=== PATIENT | female | born 1965 | race Caucasian/White ===

== ENCOUNTER 2023-10-20 03:15 | Emergency (ER) | payer OTHER, SELFPAY ==
[2023-10-20 03:22] VITALS: BP 154/81; PULSE 68; TEMP 37.1; O2SAT 98; BMI 25.8
--- NOTE | 2023-10-20 03:36 | ED.GENADUL1 ---
HPI HPI - General Adult General Chief complaint: Extremity Injury, Upper Stated complaint: RT RIB INJURY/BWC Time Seen by Provider: 10/20/23 03:25 Source: patient Mode of arrival: walk-in Limitations: no limitations History of Present Illness HPI narrative: Patient was shoveling plastic wheels into a tote when she suddenly felt a snap or pop to the right anterolateral rib cage. This occirred around 2am while at work at [employer]. She took ibuprofen without any improvement. No blunt trauma or fall. She was brought by someone ather work. Related Data Home Medications ?Medication ?Instructions ?Recorded ?Confirmed alendronate 70 mg tablet mg PO 10/20/23 bupropion HCl 300 mg 24 hr tablet, mg PO 10/20/23 extended release fluoxetine 10 mg capsule mg 10/20/23 Previous Rx's ?Medication ?Instructions ?Recorded methocarbamol 750 mg tablet 750 mg PO Q6H PRN pain #30 tabs 10/20/23 Allergies Allergy/AdvReac Type Severity Reaction Status Date / Time No Known Drug Allergies Allergy Verified 10/20/23 03:25 Opioid HPI Opioid Management Most Recent Opioid Data: No Data to Display Exam Narrative Exam Narrative: Nurses notes and vital signs reviewed and patient is not hypoxic. afebrile General: Well-appearing and in no apparent distress. Skin: Warm, dry, no pallor noted. No rash to torso. Cardiovascular: Regular Rate and Rhythm without murmur, gallop or rub. Respiratory: No accessory muscle use or respiratory distress. Lungs are clear to auscultation, no wheezing, rales or rhonchi Chest Wall: right anterolateral lower chest wall tenderness without crepitus or subcutaneous emphysema Back: No midline thoracic or lumbar vertebral tenderness. No CVA tenderness Musculoskeletal: normal ROM GI: Abdomen is soft, non-distended. Normal bowel sounds. No tenderness to palpation. No rebound, guarding, or rigidity noted. Neurological: A&O x4. No cranial nerve dysfunction observed. No truncal ataxia. Moves all extremities. Sensation intact. Psychiatric: Cooperative and interactive. Normal mood and affect. Constitutional Vital Signs, click to edit/add: Last Vital Signs Temp 98.8 F 10/20/23 03:22 Pulse 68 10/20/23 03:22 Resp 18 10/20/23 03:22 BP 154/81 H 10/20/23 03:22 Pulse Ox 98 10/20/23 03:22 O2 Del Method Room Air 10/20/23 03:22 Course Vital Signs Vital signs: Vital Signs Temperature 98.8 F 10/20/23 03:22 Pulse Rate 68 10/20/23 03:22 Respiratory Rate 18 10/20/23 03:22 Blood Pressure 154/81 H 10/20/23 03:22 Pulse Oximetry 98 10/20/23 03:22 Oxygen Delivery Method Room Air 10/20/23 03:22 Temperature 98.8 F 10/20/23 03:22 Pulse Rate 68 10/20/23 03:22 Respiratory Rate 18 10/20/23 03:22 Blood Pressure 154/81 H 10/20/23 03:22 Pulse Oximetry 98 10/20/23 03:22 Oxygen Delivery Method Room Air 10/20/23 03:22 Medical Decision Making MDM Narrative Medical decision making narrative: Patient with acute strain of the musculature of the right anterolateral lower rib cage. Patient does not need xrays - no shortness of breath, blunt trauma or palpable fracture. patient given IM Tordaol and IM Solumedrol plus oral robaxin and discharged with prescription for additional robaxin and referral to Occupational [facility] at [facility]. Discharge Plan Discharge Stand Alone Forms: Portal Instructions Chief Complaint: Extremity Injury, Upper Clinical Impression: Strain of muscle of torso Patient Disposition: Home, Self-Care Time of Disposition Decision: 03:40 Prescriptions / Home Meds: New methocarbamol 750 mg tablet 750 mg PO Q6H PRN (Reason: pain) Qty: 30 0RF No Action alendronate 70 mg tablet PO fluoxetine 10 mg capsule bupropion HCl 300 mg tablet extended release 24 hr PO Print Language: Romanian Instructions: Muscle Strain (ED) Referrals: [facility] [Outside] - As soon as possible
[2023-10-20] MEDS: METHOCARBAMOL 500 MG TABLET PO (04:18)
[2023-10-20] MEDS: METHYLPREDNISOLONE SOD SUCC PF 125 MG/2 ML VIAL IM (04:18)
[2023-10-20] MEDS: KETOROLAC TROMETHAMINE 60 MG/2 ML VIAL IM (04:23)
== END 2023-10-20 04:28 | disposition home or self-care (01) ==
PROVIDERS: Emergency Provider Emergency Medicine; PCP Nurse Practitioner
DX: S29.011A Strain of muscle and tendon of front wall of thorax, initial encounter (principal); X50.9XXA Other and unspecified overexertion or strenuous movements or postures, initial encounter
CPT/HCPCS: 96372; 99284; J2919